=== PATIENT | female | born 1935 | race Caucasian/White ===

== ENCOUNTER → 2017-05-21 | Day surgery (SDC) | payer MEDICARE, BC ==
[~2017-05-21] MED LIST: BUPIVACAINE HCL 0.25% MPF 10 ML SOL INFIL ONE
[2017-05-21] MEDS: TRIAMCINOLONE ACETONIDE 40 MG/ML SUS ONE ×2 (14:02→14:10)
[2017-05-21 14:22] VITALS: BP 133/66; PULSE 58; RESP 20; TEMP 98.2; O2SAT 96
== END | disposition home or self-care (01) | DRG 554 ==
LOC: SURG 13:08
PROVIDERS: ATTEND Nurse Anesthetist, Certified Registered
DX: M12.88 Other specific arthropathies, not elsewhere classified, other specified site (principal)
CPT/HCPCS: J3300

== ENCOUNTER 2017-09-29 10:53 | Day surgery (SDC) | payer MEDICARE, BC ==
[2017-09-29] MEDS ORDERED: BUPIVACAINE HCL 0.25% MPF 10 ML SOL INFIL ONE (11:30)
[2017-09-29] MEDS: TRIAMCINOLONE ACETONIDE 40 MG/ML SUS ONE ×4 (11:42→11:56)
[2017-09-29 11:55] VITALS: RESP 14
[2017-09-29 12:06] VITALS: BP 137/77; PULSE 58; TEMP 97.6; O2SAT 99
== END 2017-09-29 12:28 | disposition home or self-care (01) | DRG 552 ==
LOC: SURG 10:53
PROVIDERS: ATTEND Nurse Anesthetist, Certified Registered
DX: M53.3 Sacrococcygeal disorders, not elsewhere classified (principal)
CPT/HCPCS: J3300

== ENCOUNTER 2018-01-26 12:10 | Day surgery (SDC) | payer MEDICARE, BC ==
[2018-01-26 12:58] VITALS: TEMP 97.4
[2018-01-26] MEDS ORDERED: TRIAMCINOLONE ACETONIDE 40 MG/ML SUS ONE (13:35)
[2018-01-26] MEDS ORDERED: BUPIVACAINE HCL 0.5% MPF 10 ML SOL ONE (13:36)
[2018-01-26 14:11] VITALS: BP 151/75; PULSE 71; RESP 20; O2SAT 96
== END 2018-01-26 14:24 | disposition home or self-care (01) | DRG 554 ==
LOC: SURG 12:10
PROVIDERS: ATTEND Nurse Anesthetist, Certified Registered
DX: M12.9 Arthropathy, unspecified (principal)
CPT/HCPCS: J3300

== ENCOUNTER 2018-03-31 11:53 | Day surgery (SDC) | payer MEDICARE, BC ==
[2018-03-31] MEDS ORDERED: BUPIVACAINE HCL 0.25% MPF 30 ML SOL INFIL ONE (12:46)
[2018-03-31] MEDS: TRIAMCINOLONE ACETONIDE 40 MG/ML SUS ONE ×4 (12:56→13:06)
[2018-03-31 13:16] VITALS: BP 141/71; PULSE 56; RESP 16; TEMP 98.5; O2SAT 92
== END 2018-03-31 13:50 | disposition home or self-care (01) | DRG 554 ==
LOC: SURG 11:53
PROVIDERS: ATTEND Nurse Anesthetist, Certified Registered
DX: M12.9 Arthropathy, unspecified (principal)
CPT/HCPCS: G0260; J3300

== ENCOUNTER 2018-05-12 10:56 | Day surgery (SDC) | payer MEDICARE, BC ==
[2018-05-12] MEDS ORDERED: BUPIVACAINE HCL 0.25% MPF 30 ML SOL INFIL ONE (11:21)
[2018-05-12] MEDS ORDERED: DEXAMETHASONE SOD PHOS PF 10 MG/ML SOL IJ ONE (11:21)
[2018-05-12 12:04] VITALS: RESP 20; TEMP 97.2
[2018-05-12 12:10] VITALS: BP 115/88; PULSE 65; O2SAT 94
== END 2018-05-12 12:20 | disposition home or self-care (01) | DRG 552 ==
LOC: SURG 10:56
PROVIDERS: ATTEND Nurse Anesthetist, Certified Registered
DX: M48.062 Spinal stenosis, lumbar region with neurogenic claudication (principal)
CPT/HCPCS: J1100